=== PATIENT | female | born 1975 | race African-American/Black ===

== ENCOUNTER 2017-11-28 07:27 | Emergency (ER) | payer SELFPAY ==
[~2017-11-28] VITALS: Ht 167.6 cm; Wt 85.0 kg
[2017-11-28] MEDS ORDERED: MORPHINE SULFATE 4 MG/ML CPJ (NOT FOR IM USE) IV ONE (08:00)
[2017-11-28 08:24] LABS: BASOPHILS % 0.5 % (0.0-2.0); HEMATOCRIT. 32.6 % (36.0-48.0); HEMOGLOBIN. 10.2 g/dL (12.0-16.0); LYMPHOCYTES % 12.1 % (20.0-50.0); MEAN CORPUSCULAR HEMOGLOBIN 25.9 pg (28.0-32.0); MEAN CORPUSCULAR VOLUME 82.9 fL (81.0-99.0); MEAN PLATELET VOLUME 8.2 fl (7.4-10.4); MONOCYTES % 3.6 % (2.0-8.0); NEUTROPHILS % 83.8 % (40.0-76.0); PLATELET 381 x1000/uL (130-400); RED BLOOD CELL COUNT 3.93 mill/uL (4.2-5.4); RED CELL DISTRIBUTION WIDTH 16.5 % (11.6-14.6)
[2017-11-28 08:45] LABS: CARBON DIOXIDE 20 mEq/L (21-32); CHLORIDE 110 mEq/L (98-107); ETHANOL BLOOD < 10 mg/dL
[2017-11-28 09:23] LABS: CLARITY URINE CLOUDY (CLEAR); COLOR URINE DARK YELLOW (YELLOW); KETONES URINE 1+ (NEGATIVE); LEUKOCYTE ESTERASE URINE NEGATIVE (NEGATIVE); NITRITE URINE NEGATIVE (NEGATIVE); OCCULT BLOOD URINE NEGATIVE (NEGATIVE); PROTEIN URINE TRACE (NEGATIVE); SPECIFIC GRAVITY URINE 1.026 (1.005-1.030)
[2017-11-28 09:34] LABS: *AMPHETAMINES SCREEN URINE NEGATIVE (NEGATIVE); *BARBITURATES SCREEN URINE NEGATIVE (NEGATIVE); *BENZODIAZEPINES SCREEN URINE NEGATIVE (NEGATIVE); *COCAINE SCREEN URINE NEGATIVE (NEGATIVE); CANNABINOID URINE SCREEN NEGATIVE (NEGATIVE); METHADONE URINE SCREEN NEGATIVE (NEGATIVE); OPIATES URINE SCREEN NEGATIVE (NEGATIVE); PHENCYCLIDINE URINE SCREEN NEGATIVE (NEGATIVE)
[2017-11-28] MEDS ORDERED: OLANZAPINE 10 MG/VIAL IM ONE ×2 (10:44→10:45)
[2017-11-29] MEDS ORDERED: OLANZAPINE 10 MG/VIAL IM ONE ×2 (01:00→04:15)
[2017-11-29] MEDS ORDERED: OLANZAPINE 10MG TABLET ODT PO ONE (11:15)
[2017-11-29] MEDS ORDERED: LORAZEPAM 2MG/ML CPJ IM PRN (13:00)
[2017-11-29] MEDS ORDERED: QUETIAPINE FUMARATE 100MG TABLET PO SCH ×2 (14:30→20:00)
[2017-11-29 19:54] VITALS: BP 14/91
[2017-11-29] MEDS ORDERED: LORAZEPAM 1MG TABLET PO ONE (20:00)
== END 2017-11-29 23:44 ==
LOC: ER 07:38
DX: F23 Brief psychotic disorder (principal); I67.82 Cerebral ischemia; E11.9 Type 2 diabetes mellitus without complications
CPT/HCPCS: 36415; 70450; 71045; 80053; 80305; 80307; 80329; 81001; 82010; 83605; 84443; 85025; 93005; 96372; 99285; G0482; J2060; J3490; J7030; Z7610